=== PATIENT | female | born 1995 | race American Indian/Alaskan Native ===

== ENCOUNTER 2020-02-23 12:31 | Emergency (ER) | payer SELFPAY ==
[2020-02-23 12:46] VITALS: BP 149/60
--- NOTE | 2020-02-23 12:57 | Emergency Department Report ---
HPI - General Chief Complaint: Anxiety Time Seen by Provider: 02/23/20 12:52 - HPI HPI: 24-year-old female presents to the emergency department via EMS from an clinic for some anxiety and seizure-like activity. The patient was at the clinic to have an elective of 12-week-old twins. Apparently after receiving a double dose of Cytotec the patient started having this seizure-like activity. She has a known history of pseudoseizures. I have witnessed the patient having this seizure-like activity and she is awake, oriented, redirectable and is able to stop the shaking when she chooses to do so. She has some mild abdominal and pelvic discomfort but denies any current vaginal bleeding. ED Past Medical Hx - Past Medical History Previous Medical History?: Yes Hx Psychiatric Treatment: Yes (Psuedo Seizures) - Social History Smoking Status: Never Smoker Substance Use Type: Marijuana ED Review of Systems ROS: Stated complaint: SEIZURE/ANXIETY Other details as noted in HPI Comment: All other systems reviewed and negative Constitutional: denies: chills, fever Eyes: denies: eye pain, vision change ENT: denies: ear pain, throat pain Respiratory: denies: cough, shortness of breath Cardiovascular: denies: chest pain, palpitations Gastrointestinal: abdominal pain. denies: vomiting Genitourinary: denies: dysuria, discharge Musculoskeletal: denies: back pain, arthralgia Skin: denies: rash, lesions Neurological: denies: headache, weakness Physical Exam - Physical Exam Vital Signs: Vital Signs 02/23/20 12:42 Temperature 98.0 F Pulse Rate 96 H Respiratory 18 Rate Blood Pressure 149/60 O2 Sat by Pulse 100 Oximetry Physical Exam: GENERAL: The patient is well-developed well-nourished. HENT: Normocephalic. Atraumatic. Patient has moist mucous membranes. EYES: Extraocular motions are intact. NECK: Supple. Trachea is midline. CHEST/LUNGS: Clear to auscultation. There is no respiratory distress noted. HEART/CARDIOVASCULAR: Regular. There is no tachycardia. ABDOMEN: Abdomen is soft, nontender. Patient has normal bowel sounds. There is no abdominal distention. SKIN: Skin is warm and dry. NEURO: The patient is awake, alert, and oriented. The patient is cooperative. The patient is shaking with some seizure-like activity but she is awake and is redirectable. The patient is able to stop the shaking when she wants to. Normal speech. Cranial nerves II through XII grossly intact. MUSCULOSKELETAL: There is no tenderness or deformity. There is no limitation range of motion. There is no evidence of acute injury. ED Course Vital Signs 02/23/20 12:42 Temperature 98.0 F Pulse Rate 96 H Respiratory 18 Rate Blood Pressure 149/60 O2 Sat by Pulse 100 Oximetry - Consultations Consultation #1: 02/23/20 19:17 I spoke to the SPINE SURGEON on-call, Dr. Ortiz, in regards to the normal elective process. She says that the patient was most likely due to have surgical intervention after the Cytotec. Based on the information given to her she feels that the patient is safe for discharge home and can follow-up with her SPINE SURGEON or with the clinic. ED Medical Decision Making - Lab Data Result diagrams: 02/23/20 13:04 02/23/20 13:04 - Radiology Data Radiology results: report reviewed ULTRASOUND OBSTETRIC INDICATION / CLINICAL INFORMATION: TWINS GESTATION WITH CYTOTEC. Clinical Gestational Age (GA): 10 weeks 5 days TECHNIQUE: Transabdominal. COMPARISON: None available. FINDINGS: There is a twin intrauterine gestation with two separate gestational sacs and an intervening twin peak sign compatible with a dichorionic, diamniotic twin . EMBRYO/FETUSES: No significant abnormality. Twin A: - [place]-Rump Length = 6.4 cm = 12 weeks, 5 day(s). - Heart Rate, beats per minute (if present) = 162 Twin B: - [place]Rump Length = 6.0 cm = 12 weeks, 4 day(s). - Heart Rate, beats per minute (if present) = 170 ADNEXA: No significant abnormality. A right corpus luteum is seen. FREE FLUID: None. ADDITIONAL FINDINGS: None. IMPRESSION: 1. Dichorionic, diamniotic twin with estimated sonographic age of 12 weeks, 5 day(s). No significant abnormality identified. - Medical Decision Making This patient presents to the emergency department from an clinic after receiving 2 doses of Cytotec after she began having some seizure-like activity. The patient has a history of pseudoseizures and this appears to have been a stress reaction for this patient during what I am sure is a very stressful time for her during this elective . The seizure-like activity does appear consistent with pseudoseizures as she is able to stop them, remains awake and alert, and has no postictal state ever. Patient's labs were unremarkable including CBC and metabolic panel. Ultrasound shows a dichorionic diamniotic twin that is currently an active IUP. I had a long conversation with this patient regarding the lab and imaging results and the need to follow-up with the SPINE SURGEON or clinic. She also needs to return to the closest emergency department with any increased vaginal bleeding, increased abdominal pain or with any acute distress. The patient understands and agrees to this plan. Critical Care Time: No Critical care attestation.: If time is entered above; I have spent that time in minutes in the direct care of this critically ill patient, excluding procedure time. ED Disposition Clinical Impression: Pseudoseizures , twins Qualifiers: Multiple gestation type: unspecified Trimester: unspecified trimester Qualified Code(s): O30.009 - Twin , unspecified number of placenta and unspecified number of amniotic sacs, unspecified trimester Disposition: DC-01 TO HOME OR SELFCARE Is pt being admited?: No Condition: Stable Instructions: (ED) Additional Instructions: Please follow-up with your SPINE SURGEON or with the clinic regarding how to proceed regarding your elective . Return to the closest emergency department with any increased vaginal bleeding or with any acute distress. Referrals: [facility] [Other] - [facility] Time of Disposition: 17:04
[2020-02-23 13:27] LABS: Basophils % (Auto) 0.4 % (0.0-1.8); Eosinophils # (Auto) 0.1 K/mm3 (0.0-0.4); Eosinophils % (Auto) 1.1 % (0.0-4.3); Hematocrit 35.2 % (30.3-42.9); Lymphocytes # (Auto) 1.4 K/mm3 (1.2-5.4); Lymphocytes % (Auto) 18.9 % (13.4-35.0); Mean Corpuscular HGB Conc 34 % (30-34); Mean Corpuscular Volume 82 fl (79-97); Monocytes # (Auto) 0.5 K/mm3 (0.0-0.8); Monocytes % (Auto) 7.4 % (0.0-7.3); Platelet Count 211 K/mm3 (140-440)
[2020-02-23 13:48] LABS: BUN/Creatinine Ratio 12; Blood Urea Nitrogen 6 mg/dL (7-17); Calcium 9.3 mg/dL (8.4-10.2); Hemolysis Index 4
--- NOTE | 2020-02-23 16:59 | Ultrasound Report ---
ULTRASOUND OBSTETRIC INDICATION / CLINICAL INFORMATION: TWINS GESTATION WITH CYTOTEC. Clinical Gestational Age (GA): 10 weeks 5 days TECHNIQUE: Transabdominal. COMPARISON: None available. FINDINGS: There is a twin intrauterine gestation with two separate gestational sacs and an intervening twin pea k sign compatible with a dichorionic, diamniotic twin . EMBRYO/FETUSES: No significant abnormality. Twin A: - [place]-Rump Length = 6.4 cm = 12 weeks, 5 day(s). - Heart Rate, beats per minute (if present) = 162 Twin B: - [place] Length = 6.0 cm = 12 weeks, 4 day(s). - Heart Rate, beats per minute (if present) = 170 ADNEXA: No significant abnormality. A right corpus luteum is seen. FREE FLUID: None. ADDITIONAL FINDINGS: None. IMPRESSION: 1. Dichorionic, diamniotic twin with estimated sonographic age of 12 weeks, 5 day(s). No si gnificant abnormality identified. Signer Name: Mallika Allen MD Signed: 02/23/2020 4:54 PM Workstation Name: [id number]
--- NOTE | 2020-02-27 08:33 | Ultrasound Report ---
FIRSTTRIMESTER OBSTETRIC ULTRASOUND HISTORY: Evaluation of twin gestation after getting Cytotec COMPARISON: 02/23/2020 TECHNIQUE: Routine transabdominal OB ultrasound performed. This requisition is just presented to me. The examination was performed on 02/23/2020 and interpreted by another radiologist. Please note this exam was dictated along with ULTRASOUND OB LESS THAN 14 WEEK S FETUS ADD GESTATION performed on 02/23/2020. Please refer to that report. Signer Name: Macho Cruz Jr, MD Signed: 02/27/2020 8:28 AM Workstation Name: [id number]
== END 2020-02-23 17:10 | disposition home or self-care (01) ==
LOC: ED 12:31
DX: O26.891 Other specified pregnancy related conditions, first trimester (principal); R56.9 Unspecified convulsions; Z3A.12 12 weeks gestation of pregnancy
CPT/HCPCS: 36415; 76801; 76802; 80048; 85025